=== PATIENT | male | born 1975 | race Caucasian/White ===

== ENCOUNTER 2020-10-01 14:26 | Inpatient (IN) | payer OTHER ==
[~2020-10-01] VITALS: Ht 170.2 cm; Wt 110.3 kg
[2020-10-01 14:49] LABS: ABSOLUTE NEUTROPHILS 3.6 thou/uL (1.4-8.2); BASOPHILS 0.7 % (0.0-2.0); EOSINOPHILS 3.8 % (0.0-3.0); HEMOGLOBIN 14.4 gm/dL (14.0-18.0); LYMPHOCYTES 47.7 % (24.0-44.0); MCH 33.3 pg (26.0-34.0); MCHC 34.4 g/dL (28.0-37.0); MCV 96.9 fL (80.0-100.0); MONOCYTES 11.3 % (1.0-8.0); PLATELET COUNT 347 thou/uL (150-400); POLYS 36.5 % (36.0-66.0); RBC 4.33 mil/uL (4.50-6.00); RDW 13.6 % (10.5-14.5); WBC 9.8 thou/uL (4.0-11.0)
[2020-10-01 15:00] LABS: ANION GAP 13 mmol/L (7-16); BUN 12 mg/dL (7-18); CALCIUM 9.2 mg/dL (8.5-10.1); CHLORIDE 107 mmol/L (98-107); CO2 22 mmol/L (21-32); CREATININE 1.1 mg/dL (0.7-1.3); GLUCOSE 114 mg/dL (74-106); SODIUM 142 mmol/L (136-145)
[2020-10-01 15:10] LABS: ALBUMIN 4.3 g/dL (3.4-5.0); SGOT 43 U/L (15-37); SGPT 106 U/L (16-63); TOTAL BILIRUBIN 0.2 mg/dL (0.2-1.0); TOTAL PROTEIN 8.2 g/dL (6.4-8.2); TROPONIN-I <0.06 ng/mL (<0.06)
[2020-10-01 15:16] LABS: APTT 20.6 Seconds (24.5-32.8); PROTIME 10.3 Seconds (9.3-11.4)
[2020-10-01 15:44] LABS: CHOLESTEROL 212 mg/dL (<200); HDL CHOLESTEROL 38 mg/dL (>40); LDL CHOLESTEROL 132 mg/dL (<100); TC:HDL 5.6 Ratio (Not establshd); TRIGLYCERIDE 212 mg/dL (<150); VLDL 42 mg/dL (<40)
[2020-10-01 15:57] LABS: SERUM ASSESSMENT Clear
[2020-10-01 16:26] VITALS: BP 146/90
[2020-10-01 16:45] VITALS: BP 141/92
[2020-10-01 17:00] VITALS: BP 146/98
[2020-10-01 17:15] VITALS: BP 138/87
[2020-10-01 18:15] VITALS: BP 147/91
[2020-10-01 19:41] VITALS: BP 151/93
[2020-10-01] MEDS ORDERED: TUMS DUAL ACTI1 EACH PO (20:37)
--- NOTE | 2020-10-01 20:38 | NUR ---
PT. ARRIVED AT THE FLOOR AROUND 1630; PT. 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 CORDOBA AWARE OF IT; PRN PAIN MEDICATION GIVEN; REASSESSMENT ST. NO MUCH IMPROVEMENT; C/O BACK PAIN DUE TO POSITION; OF BED REST AT 1900; EDUCATED ABOUT HOLDING PRESSURE IF COUGHING OR SNEEZING OVER R. GROIN; EDUCATED ABOUT CALLING IMMEDIATELY IF NOTICED SWELLING OR BLEEDING; ST. UNDERSTANDING; IV INFILTRATED; NEW IV STARTED OVER L. AC; ANGIOMAX CONTINUE; PER DR. CORDOBA FINISH BAG AND D/C; EDUCATED ABOUT VISITOR POLICY; ST. UNDERSTANDING; EDUCATED ABOUT FALL PRECAUTIONS; ST. UNDERSTANDING; ABLE TO VOID DURING ARRIVAL; SR ON THE MONITOR; ADMISSION PERFORMED; ASSESSMENT CHARGED; FOLLOWING POC; PASSED ON REPORT;
[2020-10-02] VITALS (9 sets, daily range): BP systolic 108–160; BP diastolic 73–98
--- NOTE | 2020-10-02 06:18 | NUR ---
ASSUMED PT CARE AT NAGE OF SHIFT, AWAKE, ALERT AND ORIENTED, SR ON THE MONITOR, CP STATES IT FEELS LIKE A MUSCLE PAIN SINCE HE LIFTED A HEAVY BATTERY AT WORK, MORHINE GIVEN WITH PARTIAL RELIEF, DENIES, NAUSEA, OR DIAPHORESIS, K+ REPLACED, RIGHT GROIN SITE CDI, NO HEMATOMA, ASESSMENTS CHARTED, VSS, WILL PASS ON REPORT
[2020-10-02 08:57] LABS: HEMATOCRIT 42.7 % (42.0-52.0); HEMOGLOBIN 14.1 gm/dL (14.0-18.0); MCH 32.6 pg (26.0-34.0); MCV 98.7 fL (80.0-100.0); RBC 4.33 mil/uL (4.50-6.00); RDW 13.4 % (10.5-14.5); WBC 10.1 thou/uL (4.0-11.0)
--- NOTE | 2020-10-02 09:01 | 2DMMODE ---
[facility] [place] [address] 2 D/M-MODE ECHOCARDIOGRAM Name: DASHFELCIE Room #: 218-P ADM IN M.R.#: [id number] Admission: 10/01/20 Attend Phys: Hernando Aguilar Discharge: Date of : 79 Report #: [id number] THIS REPORT FOR: cc: FAM - Family physician unknown FAM - Family physician unknown Hernando Aguilar MD ~ APPROVED REPORT Study performed: 10/02/2020 08:15:27 EXAM: Comprehensive 2D, Doppler, and color-flow Echocardiogram Patient Location: Bedside Room #: 218 Status: routine BSA: 2.26 HR: 90 bpm BP: 156/98 mmHg Rhythm: NSR Other Information Study Quality: Adequate Indications STEMI status post PCI. Hx: Tobacco abuse, family hx CAD. 2D Dimensions RVDd: 34.73 mm IVSd: 10.72 (7-11mm) LVOT Diam: 20.42 (18-24mm) LVDd: 49.73 mm PWd: 10.29 (7-11mm) Ascending Ao: 28.23 (22-36mm) LVDs: 30.63 (25-40mm) Left Atrium: 42.59 (27-40mm) Aortic Root: 29.05 mm Volumes Left Atrial Volume (Systole) Single Plane 4CH: 67.11 mL Single Plane 2CH: 78.21 mL LA ESV Index: 35.00 mL/m2 Aortic Valve AoV Peak Bulmaro.: 1.42 m/s AO Peak Gr.: 8.08 mmHg LVOT Max P.86 mmHg LVOT Max V: 1.10 m/s [facility] [address] [place] [address] 2 D/M-MODE ECHOCARDIOGRAM Name: HARDYFELICE Room #: 218-P [facility] IN ..#: [id number] Admission: 10/01/20 Attend Phys: Hernando Lopes Discharge: Date of : 79 Report #: [id number] GRISELDA Vmax: 2.54 cm2 Mitral Valve E/A Ratio: 1.9 MV Decel. Time: 117.38 ms MV E Max Bulmaro.: 0.76 m/s MV A Bulmaro.: 0.39 m/s MV PHT: 34.04 ms IVRT: 46.14 ms Pulmonary Valve PV Peak Bulmaro.: 1.08 m/s PV Peak Gr.: 4.64 mmHg Pulmonary Vein P Vein S: 0.42 m/s P Vein D: 0.62 m/s P Vein S/D Ratio: 0.68 Left Ventricle The left ventricle is normal size. There is normal left ventricular wall thickness. The left ventricular systolic function is normal. LVEF is 50-55%. The left ventricular diastolic function is normal. Right Ventricle The right ventricle is normal size. The right ventricular systolic function is normal. Atria Left atrium is borderline dilated. The right atrium size is normal. Aortic Valve The aortic valve is normal in structure; mildly sclerotic. No aortic regurgitation is present. There is no aortic valvular stenosis. Mitral Valve The mitral valve is normal in structure. Mild mitral regurgitation. No evidence of mitral valve stenosis. Tricuspid Valve The tricuspid valve is normal in structure. There is no tricuspid valve regurgitation noted. Unable to assess pressures. Pulmonic Valve [facility] [address] [place] [address] 2 D/M-MODE ECHOCARDIOGRAM Name: DASH,FELICE Room #: 218-P [facility] IN M.R.#: [id number] Admission: 10/01/20 Attend Phys: Hernando Lopes Discharge: Date of : 79 Report #: [id number] The pulmonary valve is normal in structure. There is no pulmonic valvular regurgitation. Great Vessels The aortic root is normal in size. The ascending aorta is normal in size. IVC is not well visualized. Pericardium There is no pericardial effusion. <Conclusion> The left ventricle is normal size. LVEF is 50-55%. Left atrium is borderline dilated. The aortic valve is normal in structure; mildly sclerotic. The mitral valve is normal in structure. Mild mitral regurgitation. The tricuspid valve is normal in structure. There is no tricuspid valve regurgitation noted. Unable to assess pressures. The pulmonary valve is normal in structure. There is no pericardial effusion. <ELECTRONICALLY SIGNED> By: Hernando Aguilar MD 10/02/20899 9 9 Hernando Aguilar MD /INF
[2020-10-02 09:11] LABS: CALCIUM 9.2 mg/dL (8.5-10.1); CREATININE 1.1 mg/dL (0.7-1.3); POTASSIUM 5.2 mmol/L (3.5-5.1)
[2020-10-02 09:43] LABS: TROPONIN-I 85.09 ng/mL (<0.06)
--- NOTE | 2020-10-02 11:20 | NUR ---
Case opened to follow for dc planning needs. Administrator visited with the pt and his spouse at bedside. The pt is being treated for an PA with stent to the LAD. Possible dc home later today or tomorrow. The pt reports being indep and lives with his and minor children. He notes was working prior to admission but will be off now. He reports having legal status and his minor children are on [place] medicaid. He is familiar with [facility] clinic and will plan to followup there. He will see cardiology here next week for a f/u visit. Saftey clinics discussed along with medication assistance programs and information provided. Cm to assist with scripts at dc. Support provided. [employer] to screen for [place] Medicaid application due to emergent nature of his admission.
--- NOTE | 2020-10-02 16:49 | EKG ---
[place] [address] [facility] [place] [address] ELECTROCARDIOGRAM REPORT Name: FELICE DASH Room #: 218-P ADM IN M.R.#: [id number] Admission: 10/01/20 Attend Phys: Hernando Aguilar Discharge: Date of : 79 Report #: [id number] [facility] ED Test Date: 2020-10-01 Test Time: 14:29:29 Pat Name: HARDY VIVEROS Department: Room: 218 Gender: M Patient Access Coordinator: unknown : 1975 Requested By: Guillermo Loera Order Number: [id number] MD: Jose Shirley Measurements Intervals [place] Rate: 85 P: 46 FL: 166 QRS: 42 QRSD: 92 T: -49 QT: 359 QTc: 427 Interpretive Statements Sinus rhythm Borderline ST elevation, anterolateral leads Baseline wander in lead(s) V1 No previous ECG available for comparison Electronically Signed On 10-02-2020 16:48:58 CDT by Jose Shirley [email or web address] <ELECTRONICALLY SIGNED> By: Jose Shirley MD, [facility] 10/02/20 1648 1429 1429 Jose Shirley MD, FACC /EPI
--- NOTE | 2020-10-02 18:35 | NUR ---
ASSUMED CARE OF PT AT 0700, PT UP AND WALKING AROUND ROOM. PT WILL BE DISCHARGING TOMORROW PER CARDIOLOGY
[2020-10-03 03:38] VITALS: BP 108/77
--- NOTE | 2020-10-03 03:59 | NUR ---
ASSUMED CARE AT 1900, AWAKE, ALERT AND ORIENTED, TYL GIVENX1 FOR BACK PAIN WITH COMPLETE RELIEF, PT AMBULATED IN THE HALLWAY, ASESSMENTS CHARTED, VSS, DENIES NEEDS, PLAN FOR DISCHARGE TODAY
[2020-10-03 07:45] VITALS: BP 99/72
[2020-10-03] MEDS ORDERED: ASPIRIN325 PO (08:06)
[2020-10-03] MEDS ORDERED: ROSUVASTATIN CA20 MG PO (08:06)
[2020-10-03] MEDS ORDERED: NITROGLYCERIN0.4 MG SUBLING (08:06)
[2020-10-03] MEDS ORDERED: LOPRESSOR50 PO (08:06)
[2020-10-03] MEDS ORDERED: OMEPRAZOLE 20 M20 M1 PO (08:06)
[2020-10-03] MEDS ORDERED: LISINOPRIL10 MG PO (08:06)
[2020-10-03] MEDS ORDERED: EFFIENT10 MG PO (08:06)
[2020-10-03 10:17] VITALS: BP 160/90
--- NOTE | 2020-10-03 11:07 | NUR ---
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 CARDIAC CONSULTED; PT DISCHARGE TO HOME WITH VIA PERSONAL VEHICLE. PT RX EDUCATION COMPLETED; CASE MGMT SPOKE TO PT ABOUT RX MEDS AND WILL CALL PHARMACY TO ENSURE PT RX ARE AFFORDABLE. NO CONCERNS AT THIS TIME.
--- NOTE | 2020-10-03 11:50 | NUR ---
Pt dc'd to home this morning with his spouse. Scripts sent to [facility] per pt request. Principle Software Engineer spoke with the [facility] pharmacy and they were able to verify a coupon for 3mos of effient 10mg for $56. The other meds are on the $4 or $9 list and then they also have a discount coupon for the nitro as well. Pt to f/u with cardiology in 10 days and then coordinate with a local [facility] clinic.
== END 2020-10-03 11:09 | disposition home or self-care (01) | DRG 247 ==
LOC: ER 14:26 → 2N 16:56
PROVIDERS: Emergency Medicine; Nurse Practitioner Adult Health; ADMIT Internal Medicine; ATTEND Internal Medicine
DX: I21.09 ST elevation (STEMI) myocardial infarction involving other coronary artery of anterior wall (principal); K21.9 Gastro-esophageal reflux disease without esophagitis; E78.00 Pure hypercholesterolemia, unspecified; R10.13 Epigastric pain; Z20.822 Contact with and (suspected) exposure to COVID-19; I25.10 Atherosclerotic heart disease of native coronary artery without angina pectoris; Z82.49 Family history of ischemic heart disease and other diseases of the circulatory system; Z71.6 Tobacco abuse counseling; Z88.8 Allergy status to other drugs, medicaments and biological substances
CPT/HCPCS: 10081